=== PATIENT | male | born 1985 | race Hispanic/Latino ===

== ENCOUNTER 2020-11-10 09:58 | Outpatient (CLI) | payer OTHER, SELFPAY ==
[2020-11-10] VITALS (8 sets, daily range): BP systolic 121–134; BP diastolic 65–86; PULSE 65–687; RESP 15–95; TEMP 36.8; O2SAT 96–99
--- NOTE | 2020-11-10 10:02 | DI.RAD.S_ITS ---
PROCEDURE: PAIN L INTERLAMINAR/CAUDAL INJ INDICATIONS: SPONDYLOSIS COMPARISON: Outside Facility, RG, XR L-SPINE 4-6V, 10/12/2020, 17:14. FINDINGS: Fluoroscopic spot filming was performed to verify placement of a spinal needle at the L5-S1 level, as labeled on the films. Appropriate location of the needle tip was confirmed by injection of iodinated contrast. IMPRESSION: No significant intraprocedural abnormality. Dictated by: Yimi Fields M.D. on 11/10/2020 at 11:33 Approved by: Yimi Fields M.D. on 11/10/2020 at 11:34
[2020-11-10] MEDS: MIDAZOLAM 5 MG/5 ML VIAL IV (11:18)
[2020-11-10] MEDS: fentaNYL 100 MCG/2 ML INJ 50 MCG IV (11:20)
[2020-11-10] MEDS: BETAMETHASONE 30 MG/5 ML MDV 6 MG INJ (11:23)
[2020-11-10] MEDS: BUPIVACAINE 0.25% (PF) VIAL 2 ML INJ (11:23)
[2020-11-10] MEDS: IOPAMIDOL 15 ML VIAL 3 ML INJ (11:24)
[2020-11-10] MEDS: DEXAMETHASONE 10 MG/ML VIAL 20 MG INJ (11:24)
--- NOTE | 2020-11-10 11:32 | P.PCN_ITS ---
Date/Time/Diagnoses Date of procedure: 11/10/20 Time of procedure: 11:32 Pre-procedure diagnosis: 1. HNP WITH RADICULAR FEATURES, 2. MULTILEVEL CENTRAL STENOSIS, Post-procedure diagnosis: same Procedure Notes Procedure: 1. FLUOROSCOPICALLY GUIDED CONTRAST CONTROLLED INTERLAMINAR EPIDURAL STEROID INJECTION - L5/S1 Indications: Christopher is referred for treatment of Bilateral Foraminal Stenosis L>R LE symptoms. Physician: Pedro Martin Total Fluoroscopy time (seconds): 4 Total sedation minutes: 9 Complications: none Procedure in detail & Post-procedure care: FINDINGS Multilevel Central Spinal Stenosis with Nerve Root Compression DESCRIPTION OF PROCEDURE Fluoroscopically guided, contrast-controlled L5/S1 translaminar epidural steroid injection. Following review of allergy and review of potential side effects and complications, including, but not necessarily limited to, infection, allergic reaction, local tissue breakdown, temporary as well as permanent nerve injury, paralysis, stroke and possible , the patient indicated that the patient understood and agreed to proceed. An informed consent document was signed by the patient, witnessed by a nurse, and placed in the patient's chart. Additionally, other treatment options including modalities, medications, and physical therapy were reviewed with the patient. After review of previous anaesthesic history and IV conscious sedation the patient was deemed safe to proceed with today?s procedure with IV conscious sedation as ASA class II designation. Safety time-out was performed to confirm patient ID, procedure to be performed and site of procedure. IV sedation was accomplished with a combination of 3mg of Versed and 50mcg of Fentanyl administered by the RN after DO order, titrated to patient comfort during the course of the procedure while the patient remained responsive to all verbal commands. In the prone position, following sterile prep and drape of the lumbar region, the L5/S1 translaminar space was identified fluoroscopically. The skin was anesthetized via a 25-gauge, 1.5-inch needle with 1% lidocaine solution. At this point, a 22-gauge short bevel spinal needle was atraumatically introduced and advanced under fluoroscopic guidance into the region of the L5/S1 translaminar space. Depth was confirmed on lateral view. Radiological data, including multiple fluoroscopic views of the lumbar spine, reveal a spinal needle at the L5/S1 translaminar space. Lateral views then show placement of the needle in the epidural space. Subsequent views show contrast material flowing superiorly and inferiorly in the epidural space. No vascular or intrathecal uptake is observed. At this point, using loss of resistance technique with saline and air, the epidural space was entered. This was confirmed following negative aspiration with injection of approximately 1.5cc of Isovue 200, showing excellent epidural flow without vascular or intrathecal uptake. At this point, 1 cc of 1% lido manny solution combined with 3cc or 20mg of dexamethasone and 6mg of betamethasone was injected without incident. The patent tolerated the procedure without signs of symptoms of complications prior to transfer to the recovery area for further monitoring. The patient was then transferred to the recovery area where they were observed for an appropriate period of time after the injection. The patient reported a VAS score of 6 prior to the procedure and a post-procedure VAS of 0. POST OP INSTRUCTIONS The patient was provided a Pain Log to continue to record their response to the target-specific procedure prior to follow-up visit with their referring physician. Additionally, specific post-injection care instructions and a contact number to our office were provided if concerns arise regarding possible complications associated with the procedure are suspected.
== END 2020-11-10 11:51 | disposition home or self-care (01) ==
LOC: RAD 10:01
PROVIDERS: Referring Provider Physical Medicine & Rehabilitation; Visit Provider Physical Medicine & Rehabilitation
DX: M51.17 Intervertebral disc disorders with radiculopathy, lumbosacral region (principal); M48.07 Spinal stenosis, lumbosacral region
CPT/HCPCS: 62323; J0702; J1100; J2250; J3010

== ENCOUNTER 2021-03-23 12:23 | Outpatient (CLI) | payer OTHER, SELFPAY ==
[2021-03-23] VITALS (9 sets, daily range): BP systolic 123–159; BP diastolic 77–91; PULSE 68–87; RESP 13–23; TEMP 36.7; O2SAT 97–100
--- NOTE | 2021-03-23 12:24 | DI.RAD.S_ITS ---
PROCEDURE: PAIN L/S TRANSFORAMINAL INJECT INDICATIONS: SPONDYLOSIS COMPARISON: [facility], XA, PAIN L INTERLAMINAR/CAUDAL INJ, 11/10/2020, 11:24. Outside Facility, RG, MRI L-SPINE W/O CONTRAST, 05/10/2020, 13:22. Outside Facility, RG, XR L-SPINE 4-6V, 10/12/2020, 17:14. FINDINGS: This patient has transitional lumbar anatomy. For the purposes of this examination, the level with the last well-developed disc space is considered to be S1-S2. There is a transitional S1 level, with lumbarization. This numbering scheme is chosen to remain consistent with the outside prior MRI dated 05/10/2020. Please note that it differs by 1 level from the numbering scheme from the pain injection procedure 11/10/2020. By this numbering scheme, there are needles inserted on both sides at the L5-S1 level. The position of the tips of the needles is confirmed by injection of a small amount of iodinated contrast. IMPRESSION: Intraprocedural examination within normal limits. Transitional lumbar anatomy noted. Dictated by: Yimi Fields M.D. on 03/23/2021 at 13:07 Approved by: Yimi Fields M.D. on 03/23/2021 at 13:10
--- NOTE | 2021-03-23 13:05 | P.PCN_ITS ---
Date/Time/Diagnoses Date of procedure: 03/23/21 Time of procedure: 13:06 Pre-procedure diagnosis: FORAMINAL STENOSIS WITH LE SYMPTOMS Post-procedure diagnosis: same Procedure Notes Procedure: 1. FLUOROSCOPICALLY GUIDED CONTRAST CONTROLLED TRANSFORAMINAL EPIDURAL STEROID INJECTION - RIGHT L5/S1 TFESI Indications: Christopher is referred by Dr. Mejia for treatment of Foraminal Stenosis with Right LE Symptoms Physician: Pedro Martin Total Fluoroscopy time (seconds): 10 Total sedation minutes: 12 Complications: none Procedure in detail & Post-procedure care: FINDINGS Foraminal Nerve Root Compression secondary to disc disease and facet hypertrophy DESCRIPTION OF PROCEDURE Following review of allergy and review of potential side effects and complications, including, but not necessarily limited to, infection, allergic reaction, local tissue breakdown, stroke, temporary or permanent nerve injury, paralysis, and possible , the patient indicated that the patient understood and agreed to proceed. An informed consent document was signed by the patient, witnessed by a nurse, and placed in the patient's chart. Additionally, other treatment options including medications, modalities, and physical therapy were reviewed with the patient. After review of previous anaesthesic history and IV conscious sedation the patient was deemed safe to proceed with today?s procedure with IV conscious sedation as ASA class II designation. Safety time-out was performed to confirm patient ID, procedure to be performed and site of procedure. IV sedation was accomplished with a combination of 2mg of Versed and 50mcg of Fentanyl was administered by the RN after DO order, titrated to patient comfort during the course of the procedure while the patient remained responsive to all verbal commands In the prone position following sterile prep and drape of the lumbar region, the right L5/S1 posterior neuroforamen was identified fluoroscopically. The skin was anesthetized via a 25-gauge 1.5-inch needle with 1% lidocaine solution. At this point, a 25-gauge 3.5-inch spinal needle was atraumatically introduced and advanced under fluoroscopic guidance through the posterior right L5/S1 neuroforamen to approximately the anterior aspect of the canal. Depth was confirmed on lateral view. Following negative aspiration, injection of approximately 1.5cc of Isovue 200 under live fluoroscopy in the AP view confirmed excellent flow along the nerve root, into the epidural space without vascular or intrathecal uptake observed Radiological data, including multiple fluoroscopic views of the lumbosacral spine, reveal a spinal needle at the right L5/S1 posterior neuroforamen. Subsequent views show flow of contrast material flowing superiorly and inferiorly along the nerve root confirming epidural flow. Subsequently, a test dose of 1.5 cc of 1% lidocaine solution was administered and patient was observed for two minutes for signs or symptoms of complications, including abdominal pain, shortness of breath, bilateral upper or lower extremity weakness, nausea and vomiting, prior to steroid injection. At this point, a total of 3cc or 20mg of dexamethasone and 6mg of betamethasone was injected without incident. The procedure tolerated the procedure well without signs or symptoms of complications prior to transfer to the recovery area continued monitoring without incident. The patient was then transferred to the recovery area where they were observed for an appropriate time after the injection. The patient reported a VAS score of 7 prior to the procedure and a post- procedure VAS of 0. POST OP INSTRUCTIONS The patient was provided a Pain Log to continue to record their response to the target-specific procedure prior to follow-up visit with their referring physician. Additionally, specific post-injection care instructions and a contact number to our office were provided if concerns arise regarding possible complications associated with the procedure are suspected.
[2021-03-23] MEDS: fentaNYL 100 MCG/2 ML INJ 50 MCG IV (13:08)
[2021-03-23] MEDS: MIDAZOLAM 5 MG/5 ML VIAL IV (13:08)
[2021-03-23] MEDS: IOPAMIDOL 15 ML VIAL 3 ML INJ (13:14)
[2021-03-23] MEDS: BUPIVACAINE 0.25% (PF) VIAL 2 ML INJ (13:14)
[2021-03-23] MEDS: BETAMETHASONE 30 MG/5 ML MDV 6 MG INJ (13:14)
[2021-03-23] MEDS: DEXAMETHASONE 10 MG/ML VIAL 20 MG INJ (13:14)
== END 2021-03-23 13:45 | disposition home or self-care (01) ==
LOC: RAD 12:24
PROVIDERS: PCP Family Medicine; Referring Provider Physical Medicine & Rehabilitation; Visit Provider Physical Medicine & Rehabilitation
DX: M48.07 Spinal stenosis, lumbosacral region (principal); M51.17 Intervertebral disc disorders with radiculopathy, lumbosacral region
CPT/HCPCS: 64483; 99152; J0702; J1100; J2250; J3010

== ENCOUNTER 2021-06-15 12:02 | Outpatient (CLI) | payer OTHER, SELFPAY ==
[2021-06-15] VITALS (8 sets, daily range): BP systolic 115–144; BP diastolic 81–100; PULSE 60–82; RESP 15–20; TEMP 36.7; O2SAT 98–100
--- NOTE | 2021-06-15 12:03 | DI.RAD.S_ITS ---
PROCEDURE: PAIN L/SI FACET INJ/BLK 1STL INDICATIONS: SPONDYLOSIS COMPARISON: Outside Facility, RG, MRI L-SPINE W/O CONTRAST, 05/10/2020, 13:22. Outside Facility, RG, XR L-SPINE 4-6V, 10/12/2020, 17:14. FINDINGS: Fluoroscopic spot filming was performed to verify placement of spinal needles at the right L4-L5 and L5-S1 facet joints level(s), as labeled on the films. Appropriate location(s) of the needle tip(s) was confirmed by injection of iodinated contrast. IMPRESSION: Fluoroscopy for pain management. Dictated by: Michelle Sánchez M.D. on 06/15/2021 at 14:16 Approved by: Michelle Sánchez M.D. on 06/15/2021 at 14:17
[2021-06-15] MEDS: MIDAZOLAM 2 MG/2 ML VIAL IV (13:17)
[2021-06-15] MEDS: BUPIVACAINE 0.5% (PF) VIAL 2 ML INJ (13:19)
[2021-06-15] MEDS: IOPAMIDOL 15 ML VIAL 3 ML INJ (13:19)
[2021-06-15] MEDS: BETAMETHASONE 30 MG/5 ML MDV 12 MG INJ (13:20)
--- NOTE | 2021-06-15 13:28 | P.PCN_ITS ---
Date/Time/Diagnoses Date of procedure: 06/15/21 Time of procedure: 13:28 Pre-procedure diagnosis: 1. FACET ARTHROPATHY, 2. AXIAL LBP, 3. MULTILEVEL DDD Post-procedure diagnosis: same Procedure Notes Procedure: 1. FLUOROSCOPICALLY GUIDED CONTRAST CONTROLLED FACET JOINT INJECTIONS RIGHT L4/5, L5/S1 Indications: Christopher is referred by Dr. Mejia for treatment of Axial LBP Physician: Pedro Martin Total Fluoroscopy time (seconds): 5 Total sedation minutes: 6 Complications: none Procedure in detail & Post-procedure care: FINDINGS Multilevel Facet Arthropathy with Clinically significant axial LBP DESCRIPTION OF PROCEDURE Fluoroscopically guided, contrast-controlled right L4/5, L5/S1 facet joint injections. Following review of allergy and review of potential side effects and complications, including, but not necessarily limited to, infection, allergic reaction, local tissue breakdown, stroke, temporary or permanent nerve injury, paralysis, and possible , the patient indicated that the patient understood and agreed to proceed. An informed consent document was signed by the patient, witnessed by a nurse, and placed in the patient's chart. Additionally, other t reatment options including medications, modalities, and physical therapy were reviewed with the patient. After review of previous anaesthesic history and IV conscious sedation the patient was deemed safe to proceed with today?s procedure with IV conscious sedation as ASA class II designation. Safety time-out was performed to confirm patient ID, procedure to be performed and site of procedure. IV sedation was accomplished with a combination of 2mg of Versed was administered by the RN after DO order, titrated to patient comfort during the course of the procedure while the patient remained responsive to all verbal commands. In the prone position, following sterile prep and drape of the lumbar region, the posterior aspect of the right L4/5, L5/S1 facet joints were identified fluoroscopically. The skin was anesthetized via a 25-gauge 1.5-inch needle with 1% lidocaine solution into the corresponding facet joints. At this point, a 22- gauge 3.5-inch spinal needle was atraumatically introduced and advanced under fluoroscopic guidance into the corresponding facet joints. Following negative aspiration, injections of approximately 0.2-cc of Isovue 200 confirmed interarticular placement without vascular uptake. Radiological data, including multiple fluoroscopic views of the lumbosacral spine, reveal a spinal needle at the right L4/5, L5/S1 facet joints. Subsequent views show flow of contrast material both superiorly and inferiorly within the joint space without vascular or intrathecal uptake. At this point, a total of 0.5cc including a mixture of 0.25cc Marcaine and 0.25c c betamethasone was injected without complication into each of the corresponding facet joints. The procedure tolerated the procedure well without signs or symptoms of complications prior to transfer to the recovery area continued monitoring without incident. The patient was then transferred to the recovery area where they were observed for an appropriate period of time after the injection. The patient reported a VAS score of 7 prior to the procedure and a post-procedure VAS of 0. POST OP INSTRUCTIONS The patient was provided a Pain Log to continue to record their response to the target-specific procedure prior to follow-up visit with their referring physician. Additionally, specific post-injection care instructions and a contact number to our office were provided if concerns arise regarding possible complications associated with the procedure are suspected.
== END 2021-06-15 13:46 | disposition home or self-care (01) ==
PROVIDERS: PCP Family Medicine; Referring Provider Physical Medicine & Rehabilitation; Visit Provider Physical Medicine & Rehabilitation
DX: M47.816 Spondylosis without myelopathy or radiculopathy, lumbar region (principal); M47.817 Spondylosis without myelopathy or radiculopathy, lumbosacral region; M51.36 Other intervertebral disc degeneration, lumbar region; M51.37 Other intervertebral disc degeneration, lumbosacral region
CPT/HCPCS: 64493; 64494; J0702; J2250